=== PATIENT | male | born 1970 | race African-American/Black ===

== ENCOUNTER → 2018-01-14 | Outpatient (CLI) | payer BC | LOC: SLEEPLAB 10:42 | DX: G47.33 Obstructive sleep apnea (adult) (pediatric) (principal) ==

== ENCOUNTER → 2018-06-24 | Outpatient (CLI) | payer BC ==
--- NOTE | ~2018-06-24 | SLE ---
[facility] [place] [address] POLYSOMNOGRAPHY STUDY Name: NANDINIRIVERFatouTHANIA Room #: REG [facility]#: [id number] Admission: 06/24/18 Attend Phys: Dakota Novak MD Discharge: Date of : 72 Report #: [id number] THIS REPORT FOR: //name// CC: Dakota Zavala MD DATE OF SERVICE: 06/24/2018 TYPE OF REPORT: Sleep study. ATTENDING PHYSICIAN: Dariel Zavala M.D. HISTORY OF PRESENT ILLNESS: The patient is a 47-year-old who weighs 260 pounds and is 66 inches tall with a BMI of 42. The patient's [place] score was 10/24. The patient has a history of moderate sleep apnea, had an AHI of 25 per hour based on previous sleep study. The patient has been on auto CPAP 8-15 cm water; however, he has been intolerant to CPAP. As a result, BiPAP titration study was requested. During the night study, the patient spent 365 minutes in bed and slept for 276 minutes with a low sleep efficiency of 75%. Sleep latency was 10.8 minutes with a REM latency of 68.8 minutes. Overall, sleep architecture showed normal stage 1 sleep, increased stage 2 sleep, absent slow wave and normal REM sleep, which was 21% of the total sleep time. EKG monitoring revealed an average heart rate of 70 beats per minute with a maximum of 93 beats per minute, normal sinus rhythm, occasional PVCs seen. PLMs were seen and the index only 0.9 per hour and 0.7 per hour caused EEG arousals. The patient was started on BiPAP at a pressure of 12/6 and titrated up to 17/10. At this pressure, the patient had 43 minutes of sleep. Supine sleep was seen throughout, but no REM sleep was observed. The patient's AHI was 6.9 per hour as a result of 2 hypopneas, 1 obstructive sleep apnea and 2 central apneas. Oxygen saturation remained above 91%. I would recommend the final therapeutic BiPAP pressure as 18/12. 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 So further BiPAP titration could not be continued. IMPRESSION: 1. Moderate sleep apnea diagnosed by previous sleep study. 2. No clinically significant periodic leg movements. RECOMMENDATIONS: [facility] [address] [place] [address] POLYSOMNOGRAPHY STUDY Name: THANIA IRVING Room #: REG [facility] Nessa#: [id number] Admission: 06/24/18 Attend Phys: Dakota Novak MD Discharge: Date of : 72 Report #: [id number] 1. BiPAP at 18/12 cm water should be used on a nightly basis. 2. Follow up in 4-6 weeks to assess compliance with BiPAP and to document clinical improvement. I would also recommend review of the download data. 3. Weight loss is strongly advised. 4. Avoid [facility] depressants. 5. Cautioned regarding driving until symptoms of sleep apnea resolved with the use of BiPAP. <ELECTRONICALLY SIGNED> By: Dakota Novak MD 06/27/1847 19 28 Dakota Novak MD /nt
== END ==
LOC: SLEEPLAB 03-18 11:57
DX: G47.33 Obstructive sleep apnea (adult) (pediatric) (principal)